=== PATIENT | male | born 2000 | race Two or more races ===

== ENCOUNTER 2025-07-12 11:49 | Emergency (ER) | payer OTHER ==
[~2025-07-12] VITALS: Ht 172.7 cm; Wt 68.9 kg
[2025-07-12 11:51] VITALS: BP 122/83; PULSE 91; RESP 16; TEMP 97.6; O2SAT 96
--- NOTE | 2025-07-12 12:12 | ED.PDOC ---
GI ASSESSMENT HPI Comments 24 year old male presents to the ED with a chief compliant of blood in stool onset today (07/12/25). Patient states he has been experiencing diffused abdominal pain as well as constipation for the past 3 days, last bowel movement was about 4 days ago. This morning, patient was trying to have bowel movement, was not able to, noticed bright red blood when he wiped. Denies fever, chills, nausea, vomiting, diarrhea, hematemesis, dysuria, hematuria, dizziness, blurred vision, headache. No other symptoms or modifying factors present at this time. Chief Complaint: GI Bleed Time Seen by MD: 12:05 Reviewed Notes: Medications, Allergies Allergies: Coded Allergies: NO KNOWN ALLERGIES (Unverified , 07/12/25) Information Source: Patient Mode of Arrival: Ambulatory Timing: Days Duration: Since onset Prehospital treatment: None Quality: Sharp Vomitus: None Severity: Moderate Recent: None Recent Hx of: None Pain Location: Diffuse Modifying Factors: Nothing Associated sign and symptoms: Constipation, Abdominal Pain Past Medical History PAST MEDICAL HISTORY: Denies Surgical History: Denies all surgeries Family History Family History: Reviewed,noncontributory to illness, No family hx of Cancer, No family hx of DM, No family hx of Heart shaquille, No family hx of HTN, No family hx ofKidney shaquille, No family hx of Liver shaquille, No family hx of Lung shaquille, No family hx of Stroke Social History Smoker: Non-Smoker Alcohol: Denies ETOH Use Drugs: Denies Drug Use Lives In: Home Constitutional: denies: chills, diaphoresis, fatigue, fever, malaise, sweats, weakness, others EENTM: denies: blurred vision, double vision, ear bleeding, ear discharge, ear drainage, ear pain, ear ringing, eye pain, eye redness, hearing loss, mouth pain, mouth swelling, nasal discharge, nose bleeding, nose congestion, nose pain, photophobia, tearing, throat pain, throat swelling, voice changes, others Respiratory: denies: cough, hemoptysis, orthopnea, SOB at rest, shortness of breath, SOB with excertion, stridor, wheezing, others Cardiovascular: denies: chest pain, dizzy spells, diaphoresis, Dyspnea on exertion, edema, irregular heart beat, left arm pain, lightheadedness, palpitations, PND, syncope, others Gastrointestinal: reports: abdominal pain, rectal bleeding; denies: abdomen distended, blood streaked bowels, constipated, diarrhea, dysphagia, difficulty swallowing, hematemesis, melena, nausea, poor appetite, poor fluid intake, rectal pain, vomiting, others Genitourinary: denies: burning, dysuria, flank pain, frequency, hematuria, incontinence, penile discharge, penile sore, pain, testicle pain, testicle swelling, urgency, others Neurological: denies: dizziness, fainting, headache, left sided numbness, left sided weakness, numbness, paresthesia, pre-existing deficit, right sided numbne ss, right sided weakness, seizure, speech problems, tingling, tremors, weakness, others Musculoskeletal: denies: back pain, gout, joint pain, joint swelling, muscle pain, muscle stiffness, neck pain, others Integumetry: denies: bruises, change in color, change in hair/nails, dryness, laceration, lesions, lumps, rash, wounds, others Allergic/Immunocompromised: denies: Difficulty Healing, Frequent Infections, Hives, Itching, others Hematologic/Lymphatic: denies: anemia, blood clots, easy bleeding, easy bruising, swollen glands, others Endocrine: denies: excessive hunger, excessive sweating, excessive thirst, excessive urination, flushing, intolerance to cold, intolerance to heat, unexplained weight gain, unexplained weight loss, others Psychiatric: denies: anxiety, bipolar disorder, depression, hopeless, panic disorder, schizophrenia, sleepless, suicidal, others All Other Systems: Reviewed and Negative Physical Exam General Appearance: No Apparent Distress, Normal HEENT: Normal ENT Inspection, Pharynx Normal, TMs Normal Neck: Full Range of Motion, Non-Tender, Normal, Normal Inspection Respiratory: Chest Non-Tender, Lungs Clear, No Accessory Muscle Use, No Respiratory Distress, Normal Breath Sounds Cardiovascular: No Edema, No JVD, No Murmur, No Gallop, Normal Peripheral Pulses, Regular Rate/Rhythm Breast Exam: Deferred Gastrointestinal: No Organomegaly, Non Tender, No Pulsatile Mass, Normal Bowel Sounds, Soft Genitalia: Deferred Pelvic: Deferred Rectal: Deferred Extremities: No calf tenderness, Normal capillary refill, Normal inspection, Normal range of motion, Non-tender, No pedal edema Musculoskeletal : Apperance: Normal Neurologic: Alert, senior program analyst II-XII nml as Tested, No Motor Deficits, Normal Affect, Normal Mood, No Sensory Deficits Cerebellar Function: Normal Reflexes: Normal Skin: Dry, Normal Color, Warm Lymphatic: No Adenopathy Was a procedure done? Was a procedure done?: No GI differential Dx Differential Diagnosis: Constipation, Gastritis/PUD, Gastroenteritis, GI hemorrhage X-Ray, Labs, Meds, VS Vital Signs Date Time Temp Pulse Resp B/P (MAP) Pulse Ox O2 Delivery O2 Flow Rate FiO2 07/12/25 11:51 97.6 91 16 122/83 96 97.6 [facility] [id number] [place] [address] Ph: [phone] DIAGNOSTIC IMAGING Diagnostic Imaging Report : [id number] Signed PATIENT: THUAN GERARD ACCT: [id number] UNIT: [id number] : 2000 LOC: ER ROOM / BED: / AGE / SEX: 24 / M ADM STATUS: REG ER SERVICE 1208 ORDERING PHYSICIAN: ИРИНА PRINCE MD PROCEDURE(s): KUB - KUB ABDOMEN SINGLE VIEW REASON: abdominal pain , constipation ORDER NUMBER(s): [id number], ACCESSION NUMBER(s): [id number] Date: 07/12/2025 12:08 PM Examination: XY KUB ABDOMEN SINGLE VIEW History: abdominal pain , constipation Comparison: None TECHNIQUE: Frontal views of the abdomen was obtained. FINDINGS: Bowel gas pattern is unremarkable. The lung bases are unremarkable. No acute osseous abnormality identified. IMPRESSION: Nonobstructive bowel gas pattern. Large stool burden. ATED BY: KETAN GREEN MD DICTATED DATE/TIME: 07/12/25 1236 SIGNED BY: KETAN GREEN MD SIGNED DATE/TIME: 07/12/25 1236 CC: Time of 1ST Reevaluation: 12:35 Reevaluation 1ST: Unchanged Patient Education/Counseling: Diagnosis, Treatment, Prognosis Family Education/Counseling: No Family Present SEPSIS Sepsis Screen Date sepsis recognized/suspect: Jul 12, 2025 Time Sepsis recognized/suspect: 1151 Recent Procedure: No Respiratory Rate >20: No Heart Rate >90: Yes Temp<36 C (96.8 F) or >38.3 C: No SBP <90 or MAP <65 mmHG: No New Acute Mental Status Change: No Is the patient on CPAP, BIPAP,: No Physician Orders Kub Abdomen Single View (07/12/25 12:08) Vital Signs Date Time Temp Pulse Resp B/P (MAP) Pulse Ox O2 Delivery O2 Flow Rate FiO2 07/12/25 11:51 97.6 91 16 122/83 96 97.6 Departure 1 Departure Time of Disposition: 14:20 (Patient likely with constipation. We will discharge patient home with outpatient follow up) Impression: Primary Impression: Constipation Disposition: HOME / SELF CARE / HOMELESS Condition: Stable Additional Instructions: You are constipated. It is important to stay well rested and well hydrated. You should eat a high-fiber diet. You were prescribed MiraLax. This will help you have bowel movements. Please take as directed. If your symptoms worsen or you have any other concerns please return to the emergency room. e-Prescriptions Polyethylene Glycol 3350 (Miralax) 17 Gm Pow 17 GM PO BID for 14 Days, #28 POW Prov: ИРИНА PRINCE MD 07/12/25 Discharged With: Self Critical Care Note Critical Care Time?: No Stability Stability form required: No Heart Score Heart Score: Heart Score Response (Comments) Value History N/A 0 EKG N/A 0 Age N/A 0 Risk Factors N/A 0 Troponin N/A 0 Total 0 I personally scribed for ИРИНА PRINCE MD ([email or web address]) on 07/12/25 at 12:12. Electronically submitted by Megan Castelan ([email or web address]). I personally scribed for ИРИНА PRINCE MD ([email or web address]) on 07/12/25 at 12:56. El ectronically submitted by Megan Castelan ([email or web address]). ИРИНА PRINCE MD Jul 12, 2025 12:12
--- NOTE | 2025-07-12 12:38 | DVH ---
Date: 07/12/2025 12:08 PM Examination: XY KUB ABDOMEN SINGLE VIEW History: abdominal pain , constipation Comparison: None TECHNIQUE: Frontal views of the abdomen was obtained. FINDINGS: Bowel gas pattern is unremarkable. The lung bases are unremarkable. No acute osseous abnormality identified. IMPRESSION: Nonobstructive bowel gas pattern. Large stool burden.
[2025-07-12] MEDS ORDERED: POLY335015 PO (14:21)
[2025-07-12] MEDS: POLYETHYLENE GLYCOL 17 GM PWDR PO ONE (14:58)
== END 2025-07-12 14:56 | disposition home or self-care (01) ==
LOC: ER 11:49
DX: K59.00 Constipation, unspecified (principal)
CPT/HCPCS: 74018